=== PATIENT | female | born 1960 | race Caucasian/White ===

== ENCOUNTER 2017-11-22 22:26 | Emergency (ER) | payer SELFPAY ==
[~2017-11-22] VITALS: Ht 154.9 cm; Wt 52.6 kg
[2017-11-22 22:30] VITALS: BP 137/74
[2017-11-22] MEDS ORDERED: LIDOCAINE /MPF 1% VIAL 5 ML VIAL ONE (23:47)
[2017-11-23] MEDS ORDERED: TDAP [DIPH/PERTUSSIS/TET] 0.5 ML VIAL IM ONE (00:30)
[2017-11-23] MEDS ORDERED: LIDOCAINE 1% INJ 50 ML MDV IJ ONE (00:30)
[2017-11-23] MEDS ORDERED: CLINDAMYCIN HCL 150 MG CAPSULE PO ONE ×2 (00:30→00:42)
== END 2017-11-23 00:50 | disposition home or self-care (01) ==
LOC: ER 22:30
DX: S01.511A Laceration without foreign body of lip, initial encounter (principal); S01.112A Laceration without foreign body of left eyelid and periocular area, initial encounter; S40.811A Abrasion of right upper arm, initial encounter; S00.31XA Abrasion of nose, initial encounter; I25.2 Old myocardial infarction; E11.9 Type 2 diabetes mellitus without complications; F17.200 Nicotine dependence, unspecified, uncomplicated; F12.10 Cannabis abuse, uncomplicated; Z85.3 Personal history of malignant neoplasm of breast; Z90.13 Acquired absence of bilateral breasts and nipples; Z88.0 Allergy status to penicillin; W54.0XXA Bitten by dog, initial encounter; Y93.89 Activity, other specified; Y92.89 Other specified places as the place of occurrence of the external cause; Y99.8 Other external cause status
CPT/HCPCS: 12013; 99284; 99406; A4606; A6402; J3490; Z7610